=== PATIENT | female | born 1990 | race Caucasian/White ===

== ENCOUNTER 2017-04-22 10:45 | Outpatient (CLI) | payer OTHER ==
[~2017-04-22] VITALS: Ht 165.1 cm; Wt 62.3 kg
[2017-04-22 10:56] VITALS: BP 103/89; PULSE 79; TEMP 98.5
[2017-04-22] MEDS ORDERED: BIRTH CONTROL PO (10:56)
[2017-04-22 13:00] VITALS: BP 110/67; PULSE 85
[2017-04-22] MEDS ORDERED: PROAMATINE10 MG PO (13:58)
[2017-04-22 14:00] VITALS: BP 109/74; PULSE 81
== END 2017-04-22 14:42 | disposition home or self-care (01) ==
LOC: COL.CAR 10:45 → EDBD 10:45 → COL.CAR 10:50
DX: R55 Syncope and collapse (principal)